=== PATIENT | female | born 1995 | race Caucasian/White ===

== ENCOUNTER 2017-08-20 08:59 | Emergency (ER) | payer OTHER ==
[~2017-08-20] VITALS: Ht 162.6 cm; Wt 68.2 kg
[2017-08-20] MEDS ORDERED: SODIUM CHLORIDE 0.9% 1,000 ML IV ONE (09:19)
[2017-08-20] MEDS ORDERED: CAPSAICIN CRM 0.075%, 60GM TP ONE (09:30)
[2017-08-20] MEDS ORDERED: SODIUM CHLORIDE FLUSH 10ML SYR IVF ONE (09:30)
[2017-08-20] MEDS ORDERED: SODIUM CHLORIDE 0.9% 1,000ML IVBOLUS ONE (09:30)
[2017-08-20] MEDS ORDERED: ONDANSETRON ODT 4 MG PO ONE (09:30)
[2017-08-20] MEDS ORDERED: LORazepam 2 MG/ML, 1ML IVPush ONE (09:30)
[2017-08-20] MEDS ORDERED: VENL75CA6 PO (09:31)
[2017-08-20] MEDS ORDERED: LORazepam 2 MG/ML, 1ML ONE (09:34)
[2017-08-20] MEDS ORDERED: ONDANSETRON ODT 4 MG ONE (09:34)
[2017-08-20 09:52] LABS: MEAN CORPUSCULAR HEMOGLOBIN 31.5 pg (27.0-34.8); MEAN CORPUSCULAR HGB CONC 34.5 g/dL (32.4-35.8); MEAN CORPUSCULAR VOLUME 91.3 fL (80-100); MEAN PLATELET VOLUME 8.5 fL (7.4-10.4); PLATELET COUNT 361 x10^3/uL (130-400); RED CELL DISTRIBUTION WIDTH 12.9 % (9.6-15.2)
[2017-08-20 09:59] LABS: ALBUMIN 4.7 g/dL (3.4-5.0); ANION GAP 12 mmol/L (5-15); CALCIUM 9.4 mg/dL (8.5-10.1); CHLORIDE 104 mmol/L (98-107)
[2017-08-20] MEDS ORDERED: CAPSAICIN CRM 0.025%, 60GM TP ONE (10:00)
[2017-08-20 10:05] LABS: ALANINE AMINOTRANSFERASE 40 U/L (12-78); ALKALINE PHOSPHATASE 71 U/L (45-117); BILIRUBIN,TOTAL 1.2 mg/dL (0.2-1.0); CREATININE 1.23 mg/dL (0.55-1.02); TOTAL PROTEIN 8.7 g/dL (6.4-8.2)
[2017-08-20 10:47] LABS: BASOPHILS # (AUTO) 0.01 x10^3/uL (0-0.1); BASOPHILS % (AUTO) 0 % (0-1); EOSINOPHILS % (AUTO) 0 % (1-7); LYMPHOCYTES # (AUTO) 1.05 x10^3/uL (1-3.4); LYMPHOCYTES % (AUTO) 6 % (22-44); MD SCAN; MONOCYTES # (AUTO) 0.66 x10^3/uL (0.2-0.8); MONOCYTES % (AUTO) 4 % (2-9); NEUTROPHILS # (AUTO) 16.92 x10^3/uL (1.8-6.8); NEUTROPHILS % (AUTO) 91 % (42-75)
[2017-08-20 12:12] LABS: MICROSCOPIC AUTO
[2017-08-20 12:13] LABS: CULTURE INDICATED? YES
[2017-08-20 13:01] VITALS: BP 130/81
== END 2017-08-20 13:03 | disposition home or self-care (01) ==
LOC: ED 11:43
DX: R11.2 Nausea with vomiting, unspecified (principal); E86.0 Dehydration; R82.99 Other abnormal findings in urine
CPT/HCPCS: 36415; 76700; 80053; 81001; 83690; 84703; 85025; 87086; 96361; 96374; 99285; J2060; J7030; Q0162